=== PATIENT | male | born 1955 | race Caucasian/White ===

== ENCOUNTER 2017-07-21 07:41 | Day surgery (SDC) | payer BC ==
[2017-07-21] MEDS ORDERED: LIDOCAINE HCL 1% MPF SOL ONE (07:51)
[2017-07-21] MEDS ORDERED: PROPOFOL 500 MG/50 ML EMU IV ONE (07:51)
[2017-07-21 09:44] VITALS: TEMP 98
[2017-07-21 09:57] VITALS: BP 123/78; RESP 20
[2017-07-21 10:07] VITALS: PULSE 74; O2SAT 97
== END 2017-07-21 10:12 | disposition home or self-care (01) ==
LOC: SURG 07:41
PROVIDERS: ATTEND Internal Medicine Gastroenterology
DX: Z12.11 Encounter for screening for malignant neoplasm of colon (principal); Z86.010 Personal history of colon polyps; Z80.0 Family history of malignant neoplasm of digestive organs; K57.30 Diverticulosis of large intestine without perforation or abscess without bleeding; K64.8 Other hemorrhoids
CPT/HCPCS: 45378; J2001; J2704

== ENCOUNTER 2018-08-26 19:37 | Emergency (ER) | payer BC, OTHER ==
[2018-08-26 20:01] VITALS: RESP 16; TEMP 99.3
[2018-08-26] MEDS ORDERED: LIDOCAINE HCL 1% MPF 30 SOL ONE (20:02)
[2018-08-26] MEDS ORDERED: LIDOCAINE HCL 1% MDV 50 ML SOL SC ONE (20:05)
[2018-08-26] MEDS ORDERED: TDAP VACCINE 0.5 ML SUS IM ONE ×2 (20:21→20:24)
[2018-08-26 20:50] VITALS: BP 132/78; PULSE 68; O2SAT 95
== END 2018-08-26 20:43 | disposition home or self-care (01) | DRG 605 ==
LOC: ED 19:37
DX: S61.411A Laceration without foreign body of right hand, initial encounter (principal); W26.8XXA Contact with other sharp object(s), not elsewhere classified, initial encounter
CPT/HCPCS: 12032; 90471; 90715; 99284; A6402; J2001